=== PATIENT | female | born 1965 ===

== ENCOUNTER 2016-04-24 15:04 | Outpatient (CLI) | payer BC ==
--- NOTE | 2016-04-25 11:00 | Ultrasound Report ---
Transvaginal and transabdominal pelvic ultrasound. History: Pelvic pain. Findings: The uterus is normal in size and configuration. A small nabothian cyst measuring 1.2 x 0.7 x 1.6 cm is seen anterior to. No additional focal uterine abnormalities are seen. The endometrial echo measures 10 mm in thickness. The ovaries are normal in size and configuration. There are no adnexal masses. There is no fluid within the cul-de-sac. Impression: No significant findings.
== END 2016-04-24 15:05 | disposition home or self-care (01) ==
LOC: SPVWC 15:04
PROVIDERS: ATTEND Family Medicine
DX: N85.8 Other specified noninflammatory disorders of uterus (principal); R10.2 Pelvic and perineal pain
CPT/HCPCS: 76830; 76856